=== PATIENT | female | born 1970 | race Caucasian/White ===

== ENCOUNTER 2020-05-17 14:41 | Inpatient (IN) | payer SELFPAY ==
[~2020-05-17] VITALS: Ht 154.9 cm; Wt 56.5 kg
[2020-05-17] MEDS ORDERED: ONDANSETRON PF 4 MG/2 ML VIAL. IVP ONE (15:30)
[2020-05-17] MEDS ORDERED: IV NORMAL SALINE 1,000ML 1,000 ML IV ONE (15:30)
[2020-05-17] MEDS ORDERED: PIPERACILLIN/TAZOBACTAM 3.375 GM in IV NORMAL SALINE 50ML 50 ML IV ONE (15:30)
[2020-05-17] MEDS ORDERED: PIPERACILLIN/TAZOBACTAM 3.375 GM VIAL IV ONE (15:37)
[2020-05-17] MEDS ORDERED: IV NORMAL SALINE 50ML 50 ML ONE (15:37)
--- NOTE | 2020-05-17 15:38 | PHYS DOC ---
Past History Past Medical History: No Pertinent History Past Surgical History: Tubal ligation, Other Additional Past Surgical Histo: DENTAL TEETH Alcohol Use: Occasionally Adult General Chief Complaint Chief Complaint: SKIN PROBLEM HPI HPI Patient is a 50-year-old female presents to the emergency room complaining of a rash to her right upper leg, fever, nausea, body aches. She states she started feeling bad about 3 days ago. She did have a wound in her groin and then developed this area of redness. She states it is progressively gotten worse. She went to urgent care today who sent her to the emergency room. She has been having fevers for the last couple of days. Her highest temperature has been 102. She states the pain is achy and pressure-like in nature and is constant. She has not tried anything at home. She is never had anything like this before. Review of Systems Review of Systems Complete ROS is negative unless otherwise documented in HPI Current Medications Current Medications Current Medications Medications (Trade) Dose Ordered Sig/Dayami Start Time Stop Time Status Last Admin Dose Admin Ondansetron HCl (Zofran) 4 mg 1X ONCE 05/17/20 15:30 05/17/20 15:32 DC Piperacillin Sod/ Tazobactam Sod 3.375 gm/Sodium Chloride 50 ml @ 100 mls/hr 1X ONCE 05/17/20 15:30 05/17/20 15:59 Sodium Chloride 1,000 ml @ 1,000 mls/hr 1X ONCE 05/17/20 15:30 05/17/20 16:29 Allergies Allergies Allergies Coded Allergies Type Severity Reaction Last Updated Verified No Known Drug Allergies 05/17/20 No Physical Exam Physical Exam General: Awake, alert, NAD. Well Nourished, well hydrated. Cooperative HEENT: Atraumatic, EOMI, PERRL, airway patent, moist oral mucosa Neck: Supple, trachea midline Respiratory: CTA bilaterally, normal effort, no wheezing/crackles CV: Tachycardic, no murmur, cap refill <2 GI: Soft, nondistended, nontender, no masses MSK: No obvious deformities Skin: Warm, dry. Right upper leg: Large area of erythema with induration, warmth, swelling. 1 small open blister, no signs of abscess, no crepitus Neuro: A&O x3, speech NL, sensory and motor grossly intact, no focal deficits Psych: Normal affect, normal mood, not suicidal or homicidal Current Patient Data Vital Signs Vital Signs Date Time Temp Pulse Resp B/P (MAP) Pulse Ox O2 Delivery O2 Flow Rate FiO2 05/17/20 15:07 102.5 106 18 160/74 (102) 96 Room Air EKG EKG [] Radiology/Procedures Radiology/Procedures [] Heart Score Risk Factors: Risk Factors: DM, Current or recent (<one month) smoker, HTN, HLP, family history of CAD, obesity. Risk Scores: Risk Factors: DM, Current or recent (<one month) smoker, HTN, HLP, family history of CAD, obesity. Course & Med Decision Making Course & Med Decision Making Pertinent Labs and Imaging studies reviewed. (See chart for details) Patient is a 50-year-old female who presents to the emergency room with signs of severe cellulitis to her right upper leg. There is no crepitus to her cellulitis and it does not appear to include her perineum making necrotizing fasciitis unlikely. X-ray was ordered to ensure there was no gas within the soft tissue to also help exclude necrotizing fasciitis. Sepsis work-up was ordered including antibiotics and fluids. Patient will be admitted for further care by hospitalist them. Dragon Disclaimer Dragon Disclaimer This electronic medical record was generated, in whole or in part, using a voice recognition dictation system. Departure Departure: Impression: Primary Impression: Sepsis Additional Impression: Cellulitis Disposition: ADMITTED INPT THIS HOSP Referrals: PCP,NO (PCP) Problem Qualifiers OMAR GALAN MD May 17, 2020 15:38
--- NOTE | 2020-05-17 15:46 | RAD ---
Two-view right femur study Clinical indications: Ingrown hair in right pubic/upper thigh area. Infection. FINDINGS: No acute fracture or dislocation or lytic process evident. No soft tissue air or radiopaque foreign body is evident. IMPRESSION: No acute osseous abnormality and no soft tissue air. Electronically signed by: Enrique Alcantara MD (05/17/2020 3:43 PM) [id number]
[2020-05-17 16:23] LABS: BASO % 0 % (0-3); EOS % 0 % (0-3); HEMOGLOBIN 11.9 g/dL (12.0-15.5); LYMPH # 1.8 x10^3/uL (1.0-4.8); LYMPH % 7 % (24-48); MEAN CORPUSCULAR HEMOGLOBIN 29 pg (25-35); MEAN CORPUSCULAR HGB CONC 33 g/dL (31-37); MEAN CORPUSCULAR VOLUME 89 fL (79-100); MONO % 8 % (0-9); NEUT # 21.8 x10^3uL (1.8-7.7); NEUT % 85 % (31-73); PLATELET COUNT 283 x10^3/uL (140-400); RED BLOOD COUNT 4.05 x10^6/uL (3.50-5.40); RED CELL DISTRIBUTION WIDTH 13.6 % (11.5-14.5); WHITE BLOOD COUNT 25.7 x10^3/uL (4.0-11.0)
[2020-05-17 16:30] LABS: CALCIUM 8.9 mg/dL (8.5-10.1); CREATININE 0.8 mg/dL (0.6-1.0); GFR 75.6; POTASSIUM 3.3 mmol/L (3.5-5.1)
[2020-05-17 16:39] LABS: ALBUMIN 2.7 g/dL (3.4-5.0); ALBUMIN/GLOBULIN RATIO 0.6 (1.0-1.7); TOTAL BILIRUBIN 0.3 mg/dL (0.2-1.0); TOTAL PROTEIN 7.5 g/dL (6.4-8.2)
[2020-05-17 16:50] LABS: BILIRUBIN,URINE NEG (NEG); CLARITY,URINE CLEAR; COLOR,URINE YELLOW; GLUCOSE,URINE NEG (NEG); NITRITE,URINE NEG (NEG)
[2020-05-17 16:51] LABS: BACTERIA,URINE FEW /HPF (0-FEW); RBC,URINE OCC /HPF (0-2); SQUAMOUS EPITHELIAL CELL,UR FEW /LPF; WBC,URINE OCC /HPF (0-4)
[2020-05-17] MEDS ORDERED: VANCOMYCIN 1 GM in IV NORMAL SALINE 250ML 250 ML IV ONE (17:15)
[2020-05-17] MEDS ORDERED: VANCOMYCIN 1.5 GM in IV NORMAL SALINE 500ML 500 ML IV ONE (17:30)
[2020-05-17 18:19] LABS: % BANDS 4 % (0-9); % LYMPHS 4 % (24-48); % MONOS 11 % (0-10); % SEGS 81 % (35-66); PLT ESTIMATE ADEQUATE (ADEQUATE)
[2020-05-17] MEDS: VANCOMYCIN PER PHARMACY MC PRN (19:05)
--- NOTE | 2020-05-17 19:10 | NUR ---
ADMISSION: The patient, CLARISSA MANUEL, 50 y/o, F admitted by MARCELLO WHITLEY MD, was given written information regarding hospital policies, unit procedures and contact persons. Pt arrived to room 115 via gurney, accompanied by [facility] and nursing sup. Pt here for right upper leg/groin cellulitis. Pt reports she used a friend's razor to shave the area several days ago and has since become red, swollen and painful. Pt also c/o fever, nausea, and body aches worsening over the past few days. Pt was seen at urgent care earlier today and they referred her to the ED for treatment. Area does not appear to be open. There is one small, intact blister at right medial crease of groin. Site outlined with marker and pic taken, placed in chart. Vanco infusing per order. Discussed POC with pt, V/U. Call light in reach. Valuables were checked and logged.
--- NOTE | 2020-05-17 19:10 | NUR ---
Pharmacy Vancomycin Dosing Note S:Consulted to monitor and dose vancomycin started 05/17/20. O:CLARISSA MANUEL is a 50 year old F with Cellulitis Sepsis, . Height: 5 feet, 1 inches Weight: 57.5 kg [place] Body Weight: 47.80 Adjusted Body Weight: 51.68 Dosing Weight: Actual Other Antibiotics: LABS: Last BUN: 5 Last Creatinine: 0.8 Creatinine Clearance: 67.87 Last WBC: 25.7 Vancomycin Dosing: Loading Dose: 1500 mg x1 Dosing Weight: Actual Target Trough: 10-20 A: Based on: Actual weight, renal function, and indication P: 1. Begin Vancomycin 1000 mg IV q12h 2. Follow up Trough level on 05/19/20 at 0530 3. Pharmacy will continue to monitor, follow and adjust therapy as needed. JUAN DANIEL LANIER, 05/17/20 4730
[2020-05-17 19:14] VITALS: BP 178/85
[2020-05-17] MEDS ORDERED: MORPHINE SULFATE 4 MG/ML DISP.SYRIN. IV PRN (19:45)
[2020-05-17] MEDS ORDERED: ONDANSETRON PF 4 MG/2 ML VIAL. IVP PRN (19:45)
[2020-05-17] MEDS: ACETAMINOPHEN 500 MG TABLET PO PRN (20:16)
[2020-05-17] MEDS ORDERED: 0.9126SP NS (20:30)
[2020-05-17 22:15] VITALS: BP 139/79
[2020-05-18 05:55] VITALS: BP 121/73
[2020-05-18] MEDS: ACETAMINOPHEN 500 MG TABLET PO PRN ×2 (05:57→23:45)
[2020-05-18] MEDS ORDERED: VANCOMYCIN 1 GM in IV NORMAL SALINE 250ML 250 ML IV ONE ×2 (06:00→18:00)
[2020-05-18 06:18] LABS: BASO # 0.1 x10^3/uL (0.0-0.2); BASO % 0 % (0-3); EOS # 0.1 x10^3/uL (0.0-0.7); EOS % 0 % (0-3); HEMATOCRIT 34.2 % (36.0-47.0); HEMOGLOBIN 11.3 g/dL (12.0-15.5); LYMPH # 1.9 x10^3/uL (1.0-4.8); LYMPH % 8 % (24-48); MEAN CORPUSCULAR HEMOGLOBIN 29 pg (25-35); MEAN CORPUSCULAR HGB CONC 33 g/dL (31-37); MEAN CORPUSCULAR VOLUME 89 fL (79-100); MONO # 2.1 x10^3/uL (0.0-1.1); MONO % 9 % (0-9); NEUT # 18.8 x10^3uL (1.8-7.7); NEUT % 82 % (31-73); PLATELET COUNT 304 x10^3/uL (140-400); RED BLOOD COUNT 3.86 x10^6/uL (3.50-5.40); RED CELL DISTRIBUTION WIDTH 13.5 % (11.5-14.5); WHITE BLOOD COUNT 22.9 x10^3/uL (4.0-11.0)
[2020-05-18 06:24] LABS: CALCIUM 8.4 mg/dL (8.5-10.1); CREATININE 0.9 mg/dL (0.6-1.0); POTASSIUM 3.2 mmol/L (3.5-5.1)
[2020-05-18] MEDS: POTASSIUM CHLORIDE 20 MEQ TABLET.ER. PO SCH ×2 (08:43→21:00)
--- NOTE | 2020-05-18 08:48 | HP ---
ADMIT DATE: 05/18/2020 ATTENDING PHYSICIAN: Dr. Whitley. CHIEF COMPLAINT: Right upper thigh pain. HISTORY OF PRESENT ILLNESS: The patient is a 50-year-old female who presented to the ED with a 3-day history of swelling, erythema, and a wound in the right groin with significant redness and erythema. It was quite angry. She went to the urgent care who felt the infection was severe enough and sent her to the Emergency Room. She has had fevers up to 102 degrees Fahrenheit. Blood cultures were drawn. She was admitted with localized cellulitis of the right upper thigh. She is not diabetic. PAST MEDICAL HISTORY: Significant for tubal ligation and dental extraction. ALLERGIES: She has no known drug allergies. She takes [id number] ibuprofen. SOCIAL HISTORY: She is a smoker, half a pack of cigarettes daily, probably more. 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 She states she drinks socially. There is no history of chronic alcoholism in the past. 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 REVIEW OF SYSTEMS: Significant for the localized infection. No recent trauma. She is not diabetic, some fevers, some chills, myalgias. All other systems reviewed and turned to be negative. PHYSICAL EXAMINATION: GENERAL: When I saw her, this is a pleasant, middle-aged female. INITIAL VITAL SIGNS: Showed a blood pressure of 148/90, pulse was 98 and regular, temperature 100.1 degrees Fahrenheit, oxygen saturation 97% on room air. HEENT: Head is without trauma. Pupils are reactive. Sclerae nonicteric. Oropharynx is clear. NECK: Supple, no bruits identified. LUNGS: Otherwise clear. CARDIOVASCULAR: Showed regular heart tones. No gallops. ABDOMEN: Soft, no organomegaly. Bowel sounds are hypoactive. EXTREMITIES: Show redness and erythema along the medial portion of right upper thigh. In the short time she has been here, the erythema is not as intense and the swelling has receded. There is a line of demarcation and it appears to be receding. There is no open wound. SKIN: Warm and dry. NEUROLOGIC: Focally intact. Speech is fluent. Money Market Dealer intact. PERTINENT LABORATORY STUDIES: Admission potassium was 3.2 mEq, hemoglobin 11.3 g with a white count of 22,900. Cultures have been drawn. ASSESSMENT: 1. A 50-year-old female with cellulitis of the right upper thigh, most likely a Staphylococcus infection. 2. Tobacco use. 3. Asymptomatic hypokalemia. 4. Leukocytosis. PLAN: 1. Admit to the inpatient unit. 2. Pending blood cultures. 3. Intravenous vancomycin twice a day. 4. Potassium supplementation. 5. Pain control. 6. Diet as tolerated. MARCELLO WHITLEY MD DR: CHRISTIANA/toni JOB#: [id number] / [id number]
[2020-05-18] MEDS: LACTOBACILLUS RHAMNOSUS GG 1 CAPSULE. PO SCH ×2 (08:52→21:00)
[2020-05-18 10:31] VITALS: BP 116/66
--- NOTE | 2020-05-18 13:23 | NUR ---
PATIENT ACCOUNTS SPOKE WITH PATIENT RE: BILL FOR THIS STAY ET PAYMENT PLAN. PT MADE STATEMENT THAT CAUSED CONCERN WITH Juan CARDONA OF PT ACCOUNTS RE: POTENTIAL SUICIDE RISK. SUICIDE RISK SCREENING INITIATED BY NURSE. PT DENIES SUICIDAL IDEATION, DENIES HAVING A PLAN. ADMITS HAVING ANXIETY ABOUT BEING IN THE HOSPITAL AND THE COSTS ASSOCIATED WITH IT. STATES THAT BEING IN THE HOSPITAL "MAKES ME FEEL LIKE I AM DYING," WHICH SHE RELATES MORE A SENSE OF IMPENDING DOOM THAN A THREAT TO SELF. SHE STATES THAT SHE IS "TOO CHICKEN" TO EVER TRY TO HURT HERSELF. SHE RELATES SERIOUS CONCERNS REGARDING PAYMENT OF HER HOSPITAL BILL, BUT CONTINUES TO DENY ANY INTENT TO HARM SELF. SHE BECOMES EMOTIONAL ABOUT FEELING "CLOSED OFF" HERE, SINCE VISITORS ARE CURRENTLY NOT ALLOWED R/T COVID-19. SHE STATES THAT SHE MISSES HER DOG AND THE "SMELLS OF HOME."
[2020-05-18 14:55] VITALS: BP 116/70
[2020-05-18] MEDS: VANCOMYCIN 1 GM in IV NORMAL SALINE 250ML 250 ML IV SCH (19:30)
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
[2020-05-18 20:00] VITALS: BP 152/84
[2020-05-18 23:30] VITALS: BP 161/83
[2020-05-19 06:19] LABS: VANC TR 10.2 mcg/mL (10.0-20.0)
[2020-05-19 06:35] VITALS: BP 111/70
[2020-05-19] MEDS: VANCOMYCIN PER PHARMACY MC PRN (06:49)
--- NOTE | 2020-05-19 06:49 | NUR ---
Pharmacy Vancomycin Dosing Note S:Consulted to monitor and dose vancomycin started 05/17/20. O:CLARISSA MANUEL is a 50 year old F with Cellulitis Sepsis, . Height: 5 feet, 1 inches Weight: 56.5 kg [place] Body Weight: 47.80 Adjusted Body Weight: 51.28 Dosing Weight: Actual Other Antibiotics: LABS: Last BUN: 8 Last Creatinine: 0.9 Creatinine Clearance: 59.8 Last WBC: 22.9 Last Procalcitonin: Tmax (past 24 hours): Microbiology: I/O: 2940/2 1 VOID Drug Levels: Last Trough level: 10.2 on 05/19/20 at 0530 Last dose given 05/18/20 at 1930 Vancomycin Dosing: Loading Dose: Dosing Weight: Actual Target Trough: 10-20 A: Based on: Trough, Actual Wt and CrCl P: 1. 05/19/20 0600 Continue Vancomycin 1000 mg IV q12h 2. Follow up Trough level in 5 to 7 days as needed 3. Pharmacy will continue to monitor, follow and adjust therapy as needed. MICHAEL KEMP RPH, 05/19/20 0650 Signed: 05/19/20 at 0650 by MICHAEL KEMP RPH PHA
[2020-05-19] MEDS: VANCOMYCIN 1 GM in IV NORMAL SALINE 250ML 250 ML IV SCH ×2 (07:33→18:14)
[2020-05-19] MEDS: LACTOBACILLUS RHAMNOSUS GG 1 CAPSULE. PO SCH ×2 (07:34→19:58)
[2020-05-19] MEDS: POTASSIUM CHLORIDE 20 MEQ TABLET.ER. PO SCH ×2 (07:34→19:58)
--- NOTE | 2020-05-19 10:06 | PN ---
DATE: 05/19/2020 ATTENDING PHYSICIAN: Dr. Whitley. SUBJECTIVE: Pain is less severe in the thigh, she did become discharged yesterday when she was confronted regarding payment scheduled credit card and so on. She clearly today is not suicidal. She stated that she was just upset that people asking her for payment. OBJECTIVE FINDINGS: VITAL SIGNS: Blood pressure today is 111/70, temperature 98.3 degrees Fahrenheit, T-max yesterday was 100.9 degrees Fahrenheit, oxygen saturation 97% on room air. HEENT: Head is without trauma. Pupils are reactive. Sclerae nonicteric. Oropharynx clear. NECK: Supple. LUNGS: Clear. CARDIOVASCULAR: Showed regular heart tones. ABDOMEN: Soft. EXTREMITIES: Show decreased swelling and erythema of the medial portion of the right upper thigh. There is still induration of the tissue with some lymph node swelling of the inguinal area. SKIN: Otherwise warm and dry. ASSESSMENT: 1. A 50-year-old female with cellulitis of the right upper thigh, most likely Staphylococcus infection. 2. Tobacco use disorder. 3. Asymptomatic hypokalemia. 4. Leukocytosis. PLAN: 1. Continue intravenous vancomycin. 2. Vancomycin troughs have been reviewed and that is therapeutic. 3. Potassium supplementation. 4. Pain control. 5. She will be followed through with the [facility] to ascertain that she does not have any intentions to self-harm. MARCELLO WHITLEY MD DR: CHRISTIANA/toni JOB#: [id number] / [id number]
[2020-05-19 14:33] VITALS: BP 125/76
[2020-05-19] MEDS: diazePAM 5 MG TABLET. PO PRN ×2 (18:13→19:58)
[2020-05-19 19:25] VITALS: BP 151/86
[2020-05-20] MEDS: VANCOMYCIN 1 GM in IV NORMAL SALINE 250ML 250 ML IV SCH (06:24)
[2020-05-20 06:38] VITALS: BP 110/59
[2020-05-20] MEDS: POTASSIUM CHLORIDE 20 MEQ TABLET.ER. PO SCH (08:55)
[2020-05-20] MEDS: LACTOBACILLUS RHAMNOSUS GG 1 CAPSULE. PO SCH (08:55)
--- NOTE | 2020-05-20 09:33 | DS ---
DATE OF DISCHARGE: 05/20/2020 ATTENDING PHYSICIAN: Dr. Whitley. FINAL DISCHARGE DIAGNOSES: 1. Cellulitis, right thigh. 2. Chronic obstructive pulmonary disease. 3. Asymptomatic hypokalemia. 4. Leukocytosis. 5. Continued tobacco use. HISTORY AND PHYSICAL: This 50-year-old female, otherwise active, has an infection in the right groin. There is minimal drainage. It was indurated, reddened. She was admitted for IV antibiotics, most likely she has a Staphylococcus infection. PHYSICAL EXAMINATION: Please see my dictated note. PERTINENT LABORATORY AND X-RAY STUDIES: Two sets of blood cultures were negative at 48 hours. Hemoglobin 11.9 grams, white count 25,000 and repeat was 22,900. This will be followed as an outpatient. Potassium was 3.3 mEq. This is replaced with oral potassium. Nonfasting blood sugar was 106. COURSE IN THE HOSPITAL: The patient was admitted. She received 3 full days of intravenous vancomycin with marked improvement. We brandon a line of demarcation along the skin, and the redness and erythema has certainly dissipated and is receding. It is still sore and tender to palpation. She wanted to go home. I felt this is reasonable given her improvement. I recommended 7 more days of doxycycline 100 mg b.i.d., Bactrim DS one b.i.d., and Percocet 10/325 one every 6 hours p.r.n. pain, strong encouragement to follow up with her primary care physician. She was discharged then from our hospital in stable condition with explicit instructions and followup care. ADDENDUM: During the course of the hospitalization because of coverage, she became very distraught when case liner went to talk to her about payment schedule. She had hinted that she had intention of self-harm. As it turned out that this was just a frustration, she absolutely has no intentions of self-harm at this time. She was very happy to go home. Affect was quite normal and once again that was just an over call, I believe. In any event, she was discharged from our hospital in stable condition with explicit instructions and followup care. TOTAL DISCHARGE TIME SPENT: 41 minutes. MARCELLO WHITLEY MD DR: CHRISTIANA/toni JOB#: [id number] / [id number]
--- NOTE | 2020-05-20 09:50 | NUR ---
PATIENT IS DISCHARGED HOME WITH SELF CARE. PATINET IS STABLE AT TIME OF DISCHARGE. PATIENT IS GIVEN DISCHARGE AND FOLLOW UP INSTRUCTIONS. PATIENT'S IV IS REMOVED TELE MONITOR D/C'D PT AMBULATED OFF OF UNIT ACCOMPANIED BY STAFF.
== END 2020-05-20 09:50 | disposition home or self-care (01) | DRG 872 ==
LOC: ER 14:41 → 1 SOUTH 17:20
PROVIDERS: ADMIT Hospitalist; ATTEND Hospitalist
DX: A41.9 Sepsis, unspecified organism (principal); L03.115 Cellulitis of right lower limb; E87.6 Hypokalemia; F17.200 Nicotine dependence, unspecified, uncomplicated; J44.9 Chronic obstructive pulmonary disease, unspecified; Z98.51 Tubal ligation status
CPT/HCPCS: 36415; 73552; 80048; 80053; 80202; 81001; 83605; 85007; 85025; 87040; J2405; J2543; J3370; J7040; J7050; J7030